=== PATIENT | female | born 1980 | race Caucasian/White ===

== ENCOUNTER 2020-05-19 20:39 | Emergency (ER) | payer OTHER | END 2020-05-20 00:02 | disposition home or self-care (01) | LOC: FER 20:39 | DX: S61.253A Open bite of left middle finger without damage to nail, initial encounter (principal); Z23 Encounter for immunization; W55.81XA Bitten by other mammals, initial encounter; Y92.009 Unspecified place in unspecified non-institutional (private) residence as the place of occurrence of the external cause | CPT/HCPCS: 90471; 90715; 99283 ==